=== PATIENT | male | born 1980 | race Caucasian/White ===

== ENCOUNTER 2025-04-09 08:10 | Outpatient (CLI) | payer OTHER, SELFPAY | END 2025-04-09 08:11 | disposition home or self-care (01) | PROVIDERS: PCP Family Medicine; Visit Provider Physician Assistant Medical | DX: Z00.00 Encounter for general adult medical examination without abnormal findings (principal); Z13.228 Encounter for screening for other metabolic disorders; Z13.6 Encounter for screening for cardiovascular disorders; Z13.29 Encounter for screening for other suspected endocrine disorder | CPT/HCPCS: 80053; 80061; 84443 ==